=== PATIENT | male | born 1980 | race Caucasian/White ===

== ENCOUNTER 2018-01-04 23:34 | Observation (INO) | payer BC ==
[2018-01-05 00:33] LABS: Absolute Lymphocytes (CBC) 1.6 K/uL (0.7-4.9); Absolute Monocytes 1.1 K/uL (0.1-1.3); Absolute Neutrophil 8.2 K/uL (1.8-8.0); Basophils % 0.3 % (0-1.3); Eosinophils % 0.5 % (0-4.4); Hematocrit 48.1 % (39.6-49.0); Lymphocytes % 14.4 % (15.3-44.8); MCH 30.9 pg (27.0-35.0); MCV 88.8 fL (80-100); MPV 9.7 fL (7.6-11.3); Monocytes % 10.1 % (3.3-12.3); RBC Red Blood Cell Count 5.42 M/uL (4.33-5.43)
[2018-01-05 00:39] LABS: Protime INR 1.11
[2018-01-05 00:57] LABS: ALT/SGPT 43 U/L (12-78); AST/SGOT 33 U/L (15-37); Alkaline Phosphatase 81 U/L (45-117); BUN Blood Urea Nitrogen 9 mg/dL (7-18); Bicarbonate 28 mmol/L (21-32); Bilirubin Direct 0.1 mg/dL (0-0.2); Bilirubin Total 0.7 mg/dL (0.2-1.0); Glucose Level 109 mg/dL (74-106); Magnesium 2.5 mg/dL (1.8-2.4); NT PRO-BNP 808 pg/mL (<125); Potassium 3.9 mmol/L (3.5-5.1); Protein, Total 7.7 g/dL (6.4-8.2); Sodium Level 135 mmol/L (136-145); Troponin (Emerg Dept Use Only) < 0.02 ng/mL (0.0-0.045)
[2018-01-05 01:45] LABS: Urine Blood NEGATIVE (NEG); Urine Glucose NEGATIVE (NEG); Urine Protein NEGATIVE (NEG); Urine Specific Gravity <1.005 (1.005-1.030)
--- NOTE | 2018-01-05 01:48 | ER ---
Nurse's Notes [facility] Name: Akin Dash Age: 37 yrs Sex: Male : 1980 Arrival Date: 01/04/2018 Time: 23:38 Bed 14 Private MD: Diagnosis: Chest pain, unspecified;Cocaine abuse Presentation: 01/04 23:40 Presenting complaint: Patient states: that he is having chest pain that radiates to his back along with shortness of breath and nausea. States that this pain started after ingestion of cocaine. Transition of care: patient was not received from another setting of care. Onset of symptoms was January 04, 2018 at 01:00. Risk Assessment: Do you want to hurt yourself or someone else? Patient reports no desire to harm self or others. Initial Sepsis Screen: Does the patient meet any 2 criteria? No. Patient's initial sepsis screen is negative. Does the patient have a suspected source of infection? No. Patient's initial sepsis screen is negative. Care prior to arrival: None. 23:40 Method Of Arrival: Ambulatory fc 23:40 Acuity: BÁRBARA 3 Triage Assessment: 23:40 General: Appears comfortable, Behavior is calm, cooperative, appropriate for age. Pain: fc Complains of pain in chest Pain radiates to back Pain currently is 5 out of 10 on a pain scale. Quality of pain is described as dull, radiating, sharp, Pain began 1 day ago. Is continuous. EENT: No deficits noted. Neuro: Level of Consciousness is awake, alert, obeys commands, Oriented to person, place, time, situation. Cardiovascular: Reports chest pain, nausea, Heart tones S1 S2 Capillary refill < 3 seconds Pulses are all present. Rhythm is regular Chest pain is described as vague, quality is sharp, is located in chest wall radiates back began at 0100 episodes are continuous. Respiratory: Reports shortness of breath pain with respiration Airway is patent Trachea midline Respiratory effort is even, unlabored, Respiratory pattern is regular, symmetrical, Breath sounds are clear bilaterally. Onset: The symptoms/episode began/occurred suddenly, the patient has mild shortness of breath. GI: Abdomen is non-distended, Bowel sounds present X 4 quads. Reports nausea. : No deficits noted. Derm: Skin is pink, warm \T\ dry. Musculoskeletal: Circulation, motion, and sensation intact. Capillary refill < 3 seconds, Range of motion: intact in all extremities. Historical: - Allergies: 01/05 03:15 No Known Allergies; fc - Home Meds: 03:15 None [Active]; fc - PMHx: 03:15 None; fc - PSHx: 03:15 Appendectomy; Tonsillectomy; Knee surgery; fc - Immunization history:: Last tetanus immunization: unknown. - Social history:: Smoking status: Patient uses tobacco products, smokes one pack cigarettes per day. Patient uses alcohol, occasionally. street drugs, cocaine. - Ebola Screening: : Patient negative for fever greater than or equal to 101.5 degrees Fahrenheit, and additional compatible Ebola Virus Disease symptoms Patient denies exposure to infectious person Patient denies travel to an Ebola-affected area in the 21 days before illness onset. - Family history:: not pertinent. Screenin/27 23:40 Abuse screen: Denies threats or abuse. Nutritional screening: No deficits noted. fc Tuberculosis screening: No symptoms or risk factors identified. Fall Risk None identified. Assessment: 23:45 General: Appears in no apparent distress. uncomfortable, Behavior is calm, cooperative, kr2 appropriate for age. Pain: Complains of pain in left breast Pain does not radiate. Pain currently is 5 out of 10 on a pain scale. Quality of pain is described as sharp, Pain began 1 day ago. Is continuous, Alleviated by nothing. Neuro: Level of Consciousness is awake, alert, obeys commands, Oriented to person, place, time, situation. Cardiovascular: Capillary refill < 3 seconds in bilateral fingers Patient's skin is warm and dry. Rhythm is regular. Respiratory: Airway is patent Respiratory effort is even, unlabored, Respiratory pattern is regular, symmetrical. GI: Abdomen is flat, non-distended, Reports nausea, Patient currently denies vomiting. EENT: Oral mucosa is moist. Derm: Skin is intact, is healthy with good turgor, Skin is pink, warm \T\ dry. Musculoskeletal: Circulation, motion, and sensation intact. 01/05 01:01 Reassessment: Patient appears in no apparent distress at this time. Patient and/or kr2 family updated on plan of care and expected duration. Pain level reassessed. Patient is alert, oriented x 3, equal unlabored respirations, skin warm/dry/pink. 07:15 Reassessment: Pt resting in bed with eyes closed, easy to awaken to verbal stimuli. aa5 Respirations even and unlabored, skin is pink/warm/dry. 0/10 pain at this time, reports pain is intermittent. Pt notified of wait time to be transported to Room 213, pt verbalized understanding. . 07:35 Reassessment: Patient is alert, oriented x 3, equal unlabored respirations, skin aa5 warm/dry/pink. Vital Signs: 01/04 23:40 BP 117 / 74; Pulse 86; Resp 18; Temp 98.6(O); Pulse Ox 96% on R/A; Weight 86.18 kg (R); fc Height 5 ft. 7 in. (170.18 cm) (R); Pain 5/10; 01/05 01:22 BP 113 / 75; Pulse 75; Resp 19; Pulse Ox 97% on R/A; kr2 07:15 BP 113 / 74; Pulse 77; Resp 14 S; Temp 98.8(TE); Pulse Ox 97% on R/A; Pain 0/10; aa5 01/04 23:40 Body Mass Index 29.76 (86.18 kg, 170.18 cm) fc ED Course: 01/04 23:38 Patient arrived in ED. es 23:40 Arm band placed on Patient placed in an exam room, on a stretcher. fc 23:40 Patient has correct armband on for positive identification. Placed in gown. Bed in low fc position. Call light in reach. bus monitor on. Pulse ox on. NIBP on. 23:40 Patient maintains SpO2 saturation greater than 95% on room air. fc 23:56 EKG done, by ED staff, reviewed by Gordon Mike MD. 01/05 00:03 Initial lab(s) drawn, by oh, sent to lab. Inserted saline lock: 20 gauge in right fc antecubital area, using aseptic technique. Blood collected. 00:17 Triage completed. fc 00:25 Gordon Mike MD is Attending Physician. kvng 00:31 Monica Hanson RN is Primary Nurse. kr2 00:51 X-ray completed. Portable x-ray completed in exam room. Patient tolerated procedure kw well. 00:53 XRAY Chest (1 view) In Process Unspecified. EDMS 01:47 Maisha Arzate MD is Hospitalizing Provider. kvng 03:[address] via wheelchair. 03:24 CT completed. Patient tolerated procedure well. Patient moved back from CT. 07:00 Report received from ARA Pereyra. [facility] 07:36 Primary Nurse role handed off by Monica Hanson, ARA 07:36 No provider procedures requiring assistance completed. Patient admitted, IV remains in aa5 place. Administered Medications: 02:44 Drug: Lovenox 1 mg/kg Route: Sub-Q; Site: right lower abdomen; tl2 07:15 Follow up: Response: No adverse reaction aa 02:45 Drug: Aspirin Chewable Tablet 324 mg Route: PO; tl2 07:15 Follow up: Response: No adverse reaction [facility] Outcome: 01:48 Decision to Hospitalize by Provider. [facility] 07:35 Admitted to Tele accompanied by tech, via wheelchair, with chart, Report called to aa5 ARA Roberts 07:35 Condition: stable 07:35 Instructed on the need for admit, Demonstrated understanding of instructions. 07:40 Patient left the ED. [facility] Signatures: Dispatcher [employer] EDDafne Jung, RN RN aj1 Gordon Mike MD MD cha Salyer, Joselito Hood Paola Winston, RN RN Mary Lopez RN RN aa5 Tana Leonardo Taylor RN RN tl2 Monica Hanson, RN RN 2 Sandhya Weldon Corrections: (The following items were deleted from the chart) 01:21 01:21 BP 113 / 75; Pulse 74bpm; Resp 19bpm; Pulse Ox 97% RA; aj1 aj1
--- NOTE | 2018-01-05 01:48 | EDPHYS ---
Physician Documentation [facility] Name: Akin Dash Age: 37 yrs Sex: Male : 1980 Arrival Date: 01/04/2018 Time: 23:38 Bed 14 Private MD: ED Physician Gordon Mike HPI: 01/05 01:45 This 37 yrs old Male presents to ER via Ambulatory with complaints of Chest kvng Pain, Back Pain. 01:45 The patient or guardian reports chest pain that is located primarily in the anterior kvng chest wall, left. The pain radiates to Associated signs and symptoms: The patient has no apparent associated signs or symptoms. The chest pain is described as a heaviness. Modifying factors: The symptoms are alleviated by nothing. the symptoms are aggravated by nothing. Severity of pain: At its worst the pain was mild in the emergency department the pain is unchanged. The patient has not experienced similar symptoms in the past. Historical: - Allergies: 03:15 No Known Allergies; fc - Home Meds: 03:15 None [Active]; fc - PMHx: 03:15 None; fc - PSHx: 03:15 Appendectomy; Tonsillectomy; Knee surgery; fc - Immunization history:: Last tetanus immunization: unknown. - Social history:: Smoking status: Patient uses tobacco products, smokes one pack cigarettes per day. Patient uses alcohol, occasionally. street drugs, cocaine. - Ebola Screening: : Patient negative for fever greater than or equal to 101.5 degrees Fahrenheit, and additional compatible Ebola Virus Disease symptoms Patient denies exposure to infectious person Patient denies travel to an Ebola-affected area in the 21 days before illness onset. - Family history:: not pertinent. ROS: 01:45 Constitutional: Negative for fever, chills, and weight loss, Eyes: Negative for injury, kvng pain, redness, and discharge, ENT: Negative for injury, pain, and discharge, Neck: Negative for injury, pain, and swelling, Respiratory: Negative for shortness of breath, cough, wheezing, and pleuritic chest pain, Abdomen/GI: Negative for abdominal pain, nausea, vomiting, diarrhea, and constipation, Back: Negative for injury and pain, : Negative for injury, bleeding, discharge, and swelling, MS/Extremity: Negative for injury and deformity, Skin: Negative for injury, rash, and discoloration, Neuro: Negative for headache, weakness, numbness, tingling, and seizure, Psych: Negative for depression, anxiety, suicide ideation, homicidal ideation, and hallucinations, Allergy/Immunology: Negative for hives, rash, and allergies, Endocrine: Negative for neck swelling, polydipsia, polyuria, polyphagia, and marked weight changes, Hematologic/Lymphatic: Negative for swollen nodes, abnormal bleeding, and unusual bruising. 01:45 Cardiovascular: Positive for chest pain. Exam: 01:45 Constitutional: This is a well developed, well nourished patient who is awake, alert, kvng and in no acute distress. Head/Face: Normocephalic, atraumatic. Eyes: Pupils equal round and reactive to light, extra-ocular motions intact. Lids and lashes normal. Conjunctiva and sclera are non-icteric and not injected. Cornea within normal limits. Periorbital areas with no swelling, redness, or edema. ENT: Nares patent. No nasal discharge, no septal abnormalities noted. Tympanic membranes are normal and external auditory canals are clear. Oropharynx with no redness, swelling, or masses, exudates, or evidence of obstruction, uvula midline. Mucous membranes moist. Neck: Trachea midline, no thyromegaly or masses palpated, and no cervical lymphadenopathy. Supple, full range of motion without nuchal rigidity, or vertebral point tenderness. No Meningismus. Chest/axilla: Normal chest wall appearance and motion. Nontender with no deformity. No lesions are appreciated. Cardiovascular: Regular rate and rhythm with a normal S1 and S2. No gallops, murmurs, or rubs. Normal PMI, no JVD. No pulse deficits. Respiratory: Lungs have equal breath sounds bilaterally, clear to auscultation and percussion. No rales, rhonchi or wheezes noted. No increased work of breathing, no retractions or nasal flaring. Abdomen/GI: Soft, non-tender, with normal bowel sounds. No distension or tympany. No guarding or rebound. No evidence of tenderness throughout. Back: No spinal tenderness. No costovertebral tenderness. Full range of motion. Male : Normal genitalia with no discharge or lesions. Skin: Warm, dry with normal turgor. Normal color with no rashes, no lesions, and no evidence of cellulitis. MS/ Extremity: Pulses equal, no cyanosis. Neurovascular intact. Full, normal range of motion. Neuro: Awake and alert, GCS 15, oriented to person, place, time, and situation. Cranial nerves II-XII grossly intact. Motor strength 5/5 in all extremities. Sensory grossly intact. Cerebellar exam normal. Normal gait. Psych: Awake, alert, with orientation to person, place and time. Behavior, mood, and affect are within normal limits. Vital Signs: 01/04 23:40 BP 117 / 74; Pulse 86; Resp 18; Temp 98.6(O); Pulse Ox 96% on R/A; Weight 86.18 kg (R); fc Height 5 ft. 7 in. (170.18 cm) (R); Pain 5/10; 01/05 01:22 BP 113 / 75; Pulse 75; Resp 19; Pulse Ox 97% on R/A; kr2 07:15 BP 113 / 74; Pulse 77; Resp 14 S; Temp 98.8(TE); Pulse Ox 97% on R/A; Pain 0/10; aa5 01/04 23:40 Body Mass Index 29.76 (86.18 kg, 170.18 cm) MDM: 00:25 Patient medically screened. [facility] 01:47 Data reviewed: vital signs, nurses notes, lab test result(s), EKG, radiologic studies, kvng plain films. 01/05 00:14 Order name: Basic Metabolic Panel; Complete Time: [facility] 01/05 00:14 Order name: CBC with Diff; Complete Time: [facility] 01/05 00:14 Order name: LFT's; Complete Time: [facility] 01/05 00:14 Order name: Magnesium; Complete Time: [facility] 01/05 00:14 Order name: NT PRO-BNP; Complete Time: [facility] 01/05 00:14 Order name: PT-INR; Complete Time: [facility] 01/05 00:14 Order name: Troponin (emerg Dept Use Only); Complete Time: :44 [facility] 01/05 00:14 Order name: XRAY Chest (1 view) [facility] 01/05 01:24 Order name: Urine Dipstick--Ancillary (enter results); Complete Time: 03:43 [facility] 01/05 01:45 Order name: D-Dimer [facility] 01/05 06:47 Order name: Troponin I [facility] 01/05 06:47 Order name: Lipid Profile [facility] 01/05 00:14 Order name: EKG; Complete Time: 00:15 [facility] 01/05 00:14 Order name: Cardiac monitoring; Complete Time: 00:22 [facility] 01/05 00:14 Order name: EKG - Nurse/Tech; Complete Time: 00:30 [facility] 01/05 00:14 Order name: IV Saline Lock; Complete Time: 00: [facility] 01/05 00:14 Order name: Labs collected and sent; Complete Time: 00: [facility] 01/05 00:14 Order name: O2 Per Protocol; Complete Time: 00: [facility] 01/05 00:14 Order name: O2 Sat Monitoring; Complete Time: 00: [facility] 01/05 01:51 Order name: CONS Physician Consult EDLA Administered Medications: 02:44 Drug: Lovenox 1 mg/kg Route: Sub-Q; Site: right lower abdomen; tl2 07:15 Follow up: Response: No adverse reaction aa5 02:45 Drug: Aspirin Chewable Tablet 324 mg Route: PO; tl2 07:15 Follow up: Response: No adverse reaction aa5 Disposition: 01/05/18 01:48 Hospitalization ordered by Maisha Arzate for Observation. Preliminary diagnosis are Chest pain, unspecified, Cocaine abuse. - Bed requested for Telemetry/MedSurg (observation). - Status is Observation. aa5 - Condition is Stable. - Problem is new. - Symptoms have improved. UTI on Admission? No Signatures: Dispatcher [employer] [facility] Yani León RN RN Gordon Mike MD MD cha Chretien, Felicia RN RN Mary Lopez RN RN aa5 Meagan Rowe RN RN 2 Nikolai Russell 2 Corrections: (The following items were deleted from the chart) 01:50 01:48 Hospitalization Ordered by Maisha Arzate MD for Observation. Preliminary diagnosis is Chest pain, unspecified; Cocaine abuse. Bed requested for Telemetry/MedSurg (observation). Status is Observation. Condition is Stable. Problem is new. Symptoms have improved. UTI on Admission? No. kvng 05:03 01:50 01/05/2018 01:48 Hospitalization Ordered by Maisha Arzate MD for Observation. mw Preliminary diagnosis is Chest pain, unspecified; Cocaine abuse. Bed requested for [facility] ER HOLD. Status is Observation. Condition is Stable. Problem is new. Symptoms have improved. UTI on Admission? No. fc 07:40 05:03 01/05/2018 01:48 Hospitalization Ordered by Maisha Arzate MD for Observation. aa5 Preliminary diagnosis is Chest pain, unspecified; Cocaine abuse. Bed requested for Telemetry/MedSurg (observation). Status is Observation. Condition is Stable. Problem is new. Symptoms have improved. UTI on Admission? No. mw
[2018-01-05] MEDS ORDERED: ENOXAPARIN 80 MG/0.8 ML SQ ONE (02:37)
[2018-01-05] MEDS ORDERED: ASPIRIN 81 MG CHEWABLE TABLET ONE (02:37)
[2018-01-05] MEDS ORDERED: ACETAMINOPHEN 500 MG TAB PO PRN (03:02)
[2018-01-05] MEDS ORDERED: MORPHINE 4 MG/ML SYR IV PRN (03:02)
[2018-01-05] MEDS ORDERED: ALPRAZOLAM 0.25 MG TABLET PO PRN (03:02)
[2018-01-05] MEDS ORDERED: GUAIFENESIN/CODEINE 5ML UCUP PO PRN (03:06)
[2018-01-05] MEDS ORDERED: METHYLPREDNISOLONE 125 MG INJ IV ONE (03:06)
[2018-01-05] MEDS ORDERED: Levofloxacin500mg IV 500 MG/100 ML BAG IV SCH (04:00)
--- NOTE | 2018-01-05 05:30 | P.HP ---
Certification for Inpatient Patient admitted to: Observation With expected LOS: <2 Midnights Patient will require the following post-hospital care: None Practitioner: I am a practitioner with admitting privileges, knowledge of patient current condition, hospital course, and medical plan of care. Services: Services provided to patient in accordance with Admission requirements found in Title 42 Section 412.3 of the Code of Federal Regulations Patient History Date of Service: 01/05/18 Reason for admission: Chest pain rule out acute coronary syndrome History of Present Illness: Patient is a 37-year-old gentleman who presents to the emergency room with complaints of chest discomfort. Patient states that the chest pain is mainly on the anterior of his chest wall. He has some radiation down the left side of his arm. He describes it as a heaviness. The pain worsens when he takes a deep breath. He has also has some diaphoresis and shortness of breath. Patient had an episode of nausea and vomiting. He will be admitted to the hospital to be ruled out for acute coronary syndrome. Patient does state that he has had pneumonia in the past. He has had 2 different episodes of pneumonia. He does have pleuritic chest pain 1 did pneumonia has been present. He has been smoking more so the last few weeks as well. Will go ahead and evaluate for possible pneumonic process as well. Patient is been having a coughing congestion but denies having fever, shakes, or chills. There is also the question of a history of cocaine abuse. Will go ahead and do a urine drug screen to further evaluate this. Allergies No Known Drug Allergies Allergy (Unverified 01/05/18 03:16) Unknown No Known Allergies Allergy (Uncoded 01/05/18 03:16) Unknown Home Medications: NK [No Home Meds] 01/05/18 - Past Medical/Surgical History -: Pneumonia Past Surgical History: Patient denies surgical history - Family History Father Family History: Reviewed- Non-Contributory - Social History Smoking Status: Current every day smoker (Half a pack a day) Alcohol use: No CD- Drugs: No Review of Systems 10-point ROS is otherwise unremarkable Physical Examination - Vital Signs Temperature: 98 F Blood Pressure: 140/70 Pulse: 88 Respirations: 18 Pulse Ox (%): 95 - Physical Exam General: Alert, In no apparent distress, Oriented x3 HEENT: Atraumatic, PERRLA, Mucous membr. moist/pink, EOMI, Sclerae nonicteric Neck: Supple, 2+ carotid pulse no bruit, No LAD, Without JVD or thyroid abnormality Respiratory: Clear to auscultation bilaterally, Normal air movement Cardiovascular: Regular rate/rhythm, Normal S1 S2, No murmurs Gastrointestinal: Normal bowel sounds, Soft and benign, Non-distended, No tenderness Musculoskeletal: No clubbing, No swelling, No tenderness Integumentary: No rashes, Tenderness/swelling Neurological: Normal gait, Normal speech, Normal strength at 5/5 x4 extr, Normal tone, Sensation intact, Cranial nerves 3-12 intact, Normal affect Lymphatics: No axilla or inguinal lymphadenopathy - Studies Laboratory Data (last 24 hrs) 01/05/18 00:03: PT 13.1 H, INR 1.11 01/05/18 00:03: WBC 11.0 H, Hgb 16.7, Hct 48.1, Plt Count 137 L 01/05/18 00:03: Sodium 135 L, Potassium 3.9, BUN 9, Creatinine 1.40 H, Glucose 109 H, Magnesium 2.5 H, Total Bilirubin 0.7, AST 33, ALT 43, Alkaline Phosphatase 81 Assessment & Plan - Problems (Diagnosis) (1) Chest pain, rule out acute myocardial infarction Current Visit: Yes Status: Acute (2) Leukocytosis Current Visit: Yes Status: Acute (3) Thrombocytopenia Current Visit: Yes Status: Acute - Plan Plan: 1. Serial troponins and EKG 2. Cardiology consultation 3. Echocardiogram and stress test in am 4. Anti-platelet therapy, anti coagulation, beta-jayce, statin, and O2 as needed 5. IV morphine for pain 6. Check urine drug screen as well 7. GI and DVT prophylaxis Discharge Plan: Home Plan to discharge in: 24 Hours - Advance Directives Does patient have a Living Will: No Does patient have a Durable POA for Healthcare: No - Code Status/Comfort Care Code Status Assessed: Yes Code Status: Full Code Critical Care: No Time Spent Managing PTS Care (In Minutes): 50
[2018-01-05 06:47] LABS: HDL Cholesterol 33 mg/dL (40-60); LDL Cholesterol, Calculated 106 (<130); Troponin I < 0.02 ng/mL (0.0-0.045)
[2018-01-05] MEDS ORDERED: REGADENOSON 0.4 MG/5 ML SYR IV ONE (08:07)
[2018-01-05] MEDS ORDERED: METOPROLOL TAR 50 MG TAB PO SCH (09:00)
[2018-01-05] MEDS ORDERED: ASPIRIN EC 81 MG TAB PO SCH (09:00)
[2018-01-05] MEDS ORDERED: ENOXAPARIN 40 MG/0.4 ML SQ SCH (09:00)
--- NOTE | 2018-01-05 09:05 | EKG ---
Test Date: 2018-01-04 Test Time: 23:56:31 [employer] T[employer]: ARLIN MEASUREMENT RESULTS: Intervals: Rate: 86 TX: 148 QRSD: 90 QT: 366 QTc: 437 Hewitt: P: 45 TX: 148 QRS: 71 T: 41 INTERPRETIVE STATEMENTS: Normal sinus rhythm Normal ECG No previous ECG available for comparison Electronically Signed On 01-05-18 09:05:19 CDT by Kristian Louise
--- NOTE | 2018-01-05 09:28 | RAD REPORT ---
EXAM DESCRIPTION: RAD - Chest Single View - 01/05/2018 12:53 am CLINICAL HISTORY: Chest pain COMPARISON: None. TECHNIQUE: AP portable chest image was obtained 0033 hours . FINDINGS: Lungs are clear. Heart and vasculature are normal. No measurable pleural effusion and no p neumothorax. No gross bony abnormality seen. No acute aortic findings suspected. IMPRESSION: No acute cardiopulmonary process.
--- NOTE | 2018-01-05 09:36 | TREADPHA ---
DX: CHEST PAIN Date of Study: 01/05/2018 Ht: 5 7 Wt: 190 lb 0 oz Consulting Physician: LINDSEY MEDICATIONS: NO HOME MEDICATIONS. HISTORY: 37 YEAR OLD MALE WITH COMPLAINTS OF CHEST PAIN. MEDICAL HISTORY: NONE. PT IS A SMOKER, 1 PACK PER DAY. PHYSICIAL EXAMINATION: RESTING B.P.: 99/64 RESTING H.R.: 73 RESTING EKG: NORMAL. PROTOCOL: LEXISCAN EXERCISE TIME: 3:30 B.P. AT PEAK STRESS: 102/59 IMPRESSION: LEXISCAN INJECTED. CARDIOLITE INJECTED PER PROTOCOL. SEE NUCLEAR MEDICINE REPORT. NO SUPRAVENTRICULAR TACHYCARDIA. NO VENTRICULAR TACHYCARDIA. NO PREMATURE VENTRICULAR COMPLEXES. DENIED CHEST PAIN. NONDIAGNOSTIC EXERCISE LEXISCAN STRESS TEST.
--- NOTE | 2018-01-05 09:40 | RAD REPORT ---
EXAM DESCRIPTION: CT - Thorax Wo Con - 01/05/2018 3:30 am CLINICAL HISTORY: Back pain, chest pain. A preliminary report was provided at the time of the study but was not available at time of final re port. COMPARISON: None. TECHNIQUE: Axial 5 mm thick images of the chest were obtained without IV contrast. All CT scans are performed using dose optimization technique as appropriate and may include automated exposure control or mA/KV adjustment according to patient size. FINDINGS: No mass or infiltrate in the lung parenchyma. No pleural thickening or pleural effusion. N o pneumothorax. No abnormal mediastinal or hilar masses or lymphadenopathy seen. No gross aortic or pulmonary artery finding suspected. Assessment is limited in the absence of IV contrast. No chest wall mass or abnormal axillary lymphadenopathy. IMPRESSION: Negative non-contrast CT chest examination.
--- NOTE | 2018-01-05 10:40 | RAD REPORT ---
EXAM DESCRIPTION: NM - Rest Stress Cardiac Imaging - 01/05/2018 10:27 am CLINICAL HISTORY: Chest pain COMPARISON: None. TECHNIQUE: The patient was administered 10.4 mCi of Tc 99m Sestamibi prior to resting SPECT imaging of the heart. The patient was then administered 31.1 mCi of Tc 99m Sestamibi following exercise or ph armacologic stress. Multiplanar SPECT images were reviewed. FINDINGS: The end diastolic volume is 95 ml, the end systolic volume is 39 ml, and the ejection frac tion is 60 %. Small focal areas of decreased activity are seen in the anterior wall mid in apex portion and the inf erior wall near the apex. These are not clearly different between rest and stress imaging. Stress-ind uced ischemic changes are not confirmed. IMPRESSION: No stress-induced ischemia. Small focal areas of scarring or possibly attenuation artifacts in the anterior and inferior wall. Ventricular volumes and ejection fraction are normal range.
[2018-01-05] MEDS ORDERED: INFLUENZA VACCINE (for 3y+) 0.5 ML DOSE IMVAC ONE (12:00)
--- NOTE | 2018-01-05 14:13 | CON ---
Identification: A 37-year-old man. History Of Present Illness: Mr. Dash came to the hospital with chest pain. He had been having fiorella st pain for 2 days already before he got here and it was already starting to resolve on its own. The pain is in left side of his chest. It gets a lot worse with a deep breath and this morning it is mu ch better than it was, especially Monday. Since he has been in the hospital, NM was ruled out. T he patient has no history of myocardial infarction, stroke, hypertension, dyslipidemia. No vascular disease. He is a regular tobacco user, but plans to quit. His EKG is normal and troponins are erika l. NT proBNP is slightly elevated at 808. Physical Examination: General: He is 5 feet 7, 190 pounds. He is muscular. Does not have centripetal obesity HEENT: Nor mal. Lungs: Clear. Cardiac: Normal. No clear friction rub. Vital Signs: His blood pressure is 113/74, pulse 77. Laboratory Data: Platelet count is slightly low at 137. We suspect that is from excessive alcohol a buse, which seems to be a part of his life. Medications: He uses no home medications. A stress test will be done soon. If that is normal, I think he could be discharged. I suspect the m ethylprednisolone is what helped him feel better. He received 1 dose. He could probably take nonste roidal anti-inflammatory drugs until his symptoms resolve. An echocardiogram will be done at some po int later today. Thank you very much for your kind referral of Mr. Dash. I will follow him with you. GIAN Voice ID: [id number] Report ID: [id number]
--- NOTE | 2018-01-05 15:08 | ECHO ---
HEIGHT: 5 ft 7 in WEIGHT: 187 lb 4 oz DATE OF STUDY: 01/05/[address]: 2-DIMENSIONAL: YES M.MODE: YES DOPPLER: YES COLOR FLOW: YES TDS: NO PORTABLE: NO DEFINITY: NO BUBBLE STUDY: NO DIAGNOSIS: CHEST PAIN. RULE OUT ACUTE CORONARY SYNDROME CARDIAC HISTORY: CATHERIZATION: NO SURGERY: NO PROSTHETIC VALVE: NO PACEMAKER: NO MEASUREMENTS (cm) DIASTOLIC (NORMALS) SYSTOLIC (NORMALS) IVSd 1.0 (0.6-1.2) LA Diam 3.4 (1.9-4.0) LVEF 72% LVIDd 3.4 (3.5-5.7) LVIDs 2.0 (2.0-3.5) %FS 40% LVPWd 0.9 (0.6-1.2) Ao Diam 2.6 (2.0-3.7) 2 DIMENSIONAL ASSESSMENT: RIGHT ATRIUM: NORMAL LEFT ATRIUM: NORMAL RIGHT VENTRICLE: NORMAL LEFT VENTRICLE: NORMAL TRICUSPID VALVE: NORMAL MITRAL VALVE: NORMAL PULMONIC VALVE: NORMAL AORTIC VALVE: NORMAL PERICARDIAL EFFUSION: NONE AORTIC ROOT: NORMAL LEFT VENTRICULAR WALL MOTION: NORMAL. DOPPLER/COLOR FLOW: NORMAL. COMMENTS: NORMAL 2D ECHOCARDIOGRAM WITH DOPPLER. TECHNOLOGIST: OMAYRA NOLASCO RDCS
[2018-01-05 15:50] LABS: Barbiturates NEGATIVE (NEGATIVE); Benzodiazepines NEGATIVE (NEGATIVE); METHAMPHETAM NEGATIVE (NEGATIVE); Methadone NEGATIVE (NEGATIVE); Opiates POSITIVE (NEGATIVE); Phencyclidine NEGATIVE (NEGATIVE); THC Cannibis NEGATIVE (NEGATIVE)
[2018-01-05 15:51] LABS: Cocaine POSITIVE (NEGATIVE)
--- NOTE | 2018-01-06 07:16 | DS ---
Date of Discharge: 01/05/2018 Consultants: Dr. Louise with Cardiology. Procedures: Nuclear medicine stress test shows no stress-induced ischemia, done on 01/05/2018. EF 6 0%. Admitting Diagnoses: 1.Chest pain, rule out acute coronary syndrome. 2.Leukocytosis. 3.Thrombocytopenia. Discharge Diagnoses: 1.Chest pain. Acute coronary syndrome ruled out. 2.Cocaine abuse. 3.Thrombocytopenia. 4.Acute kidney injury. 5.Hypertriglyceridemia. 6.Nicotine dependance. Hospital Course: The patient is a 37-year-old male who comes in with chest pain, mainly the anterior chest wall. The patient does admit to using cocaine prior to his episode. Denies any history of he art disease. No family history of heart disease. The patient is a smoker. Patient's workup reveale d negative cardiac enzymes. His triglyceride level was elevated at 226, HDL was low at 33. He was c ounseled regarding diet and exercise modification prior to initiating statin therapy. The patient wa s also counseled regarding smoking and extensively counseled against use of cocaine. The patient voi kiana understanding. He states he was not sure what he was thinking when he took the illicit drug. Dc s UDS was also obtained. The patient did have some mildly elevated creatinine at 1.4, which is likel y from an acute dehydration and prerenal azotemia. He was seen by Dr. Louise with Cardiology. Nucle ar medicine stress test was done which did not show any stress-induced ischemia. His echocardiogram showed normal ejection fraction. The patient's symptoms had resolved. He was then cleared for disch arge and was sent home in a stable condition. Activity: As tolerated. Medications: As per medication reconciliation list. Followup: Follow up with primary care physician in 2-3 days. Follow up with [employer], Dr. Chad callaway, as needed. Return to ER for worsening condition. Diet: Heart healthy, low-cholesterol diet. Complete abstinence from cocaine. Smoking cessation cou nseling done. Physical Examination: General: Awake, alert, oriented, no acute distress. CV: S1, S2. No murmurs. Respiratory: Moving air well bilaterally. Abdomen: Abdomen is soft, nontender, nondistended. Positive bowel sounds. Extremities: No clubbing, cyanosis, edema. Neurologic: Nonfocal. SA/MODL Voice ID: [id number] Report ID: [id number]
== END 2018-01-05 16:15 | disposition home or self-care (01) ==
LOC: ER 23:34 → ERHOLD 01-05 01:49 → 2ND 01-05 05:50
PROVIDERS: ADMIT Hospitalist; ATTEND Hospitalist
DX: R07.9 Chest pain, unspecified (principal); F14.10 Cocaine abuse, uncomplicated; D69.6 Thrombocytopenia, unspecified; N17.9 Acute kidney failure, unspecified; E78.1 Pure hyperglyceridemia; F17.210 Nicotine dependence, cigarettes, uncomplicated
CPT/HCPCS: 36415; 71045; 71250; 78452; 80048; 80061; 80076; 80307; 81003; 83735; 83880; 84484; 85025; 85379; 85610; 93005; 93017; 93306; 96372; 99285; A9500; G0378; J1650; J2785; J2930

== ENCOUNTER 2018-10-23 12:46 | Emergency (ER) | payer BC, SELFPAY ==
[2018-10-23 14:31] LABS: Hematocrit 52.1 % (39.6-49.0)
[2018-10-23 14:32] LABS: Absolute Lymphocytes (CBC) 3.6 K/uL (0.7-4.9); Basophils % 0.7 % (0-1.3); Eosinophils % 1.4 % (0-4.4); Lymphocytes % 33.7 % (15.3-44.8); MPV 9.2 fL (7.6-11.3)
[2018-10-23] MEDS ORDERED: KETOROLAC 30 MG/ML INJ ONE (14:36)
[2018-10-23] MEDS ORDERED: MEPERIDINE HCL 25 MG/0.5 ML ONE (14:36)
[2018-10-23] MEDS ORDERED: ONDANSETRON 4 MG/2 ML VIAL ONE (14:37)
[2018-10-23 14:53] LABS: Potassium 3.7 mmol/L (3.5-5.1)
--- NOTE | 2018-10-23 15:36 | ER ---
Nurse's Notes [facility] Name: Akin Dash Age: 37 yrs Sex: Male : 1980 Arrival Date: 10/23/2018 Time: 12:50 Bed 9 Private MD: Diagnosis: Septic Bursitis Presentation: 10/23 13:05 Presenting complaint: Patient states: i have an inflamed bursa on my R elbow and now hj its swollen and hurting; pain is 10/10;. Transition of care: patient was not received from another setting of care. Onset of symptoms was October 23, 2018. Risk Assessment: Do you want to hurt yourself or someone else? Patient reports no desire to harm self or others. Initial Sepsis Screen: Does the patient meet any 2 criteria? No. Patient's initial sepsis screen is negative. Does the patient have a suspected source of infection? No. Patient's initial sepsis screen is negative. Care prior to arrival: None. 13:05 Method Of Arrival: Ambulatory 13:05 Acuity: BÁRBARA 3 hj Triage Assessment: 15:41 General: Behavior is. ca1 Historical: - Allergies: 13:07 No Known Drug Allergies; hj - PMHx: 13:07 None; hj - PSHx: 13:07 Appendectomy; Tonsillectomy; Knee surgery; hj - Immunization history:: Adult Immunizations not up to date. - Social history:: Smoking status: Patient uses tobacco products, smokes one pack cigarettes per day. - Ebola Screening: : Patient negative for fever greater than or equal to 101.5 degrees Fahrenheit, and additional compatible Ebola Virus Disease symptoms Patient denies exposure to infectious person Patient denies travel to an Ebola-affected area in the 21 days before illness onset No symptoms or risks identified at this time. Screenin:35 Abuse screen: Denies threats or abuse. Denies injuries from another. Nutritional ca1 screening: No deficits noted. Tuberculosis screening: No symptoms or risk factors identified. Fall Risk None identified. Assessment: 13:35 General: Appears in no apparent distress. uncomfortable. Pain: Complains of pain in ca1 right antecubital area and right elbow Pain currently is 8 out of 10 on a pain scale. Derm: Skin is intact, is healthy with good turgor, Skin is pink, warm \T\ dry. Musculoskeletal: Circulation, motion, and sensation intact. Capillary refill < 3 seconds, Range of motion: limited in right elbow. 13:35 Neuro: Level of Consciousness is awake, alert, obeys commands, Oriented to person, ca1 place, time, situation. Cardiovascular: Heart tones S1 S2 present Capillary refill < 3 seconds Patient's skin is warm and dry. Respiratory: Airway is patent Respiratory effort is even, unlabored, Respiratory pattern is regular, symmetrical, Breath sounds are clear bilaterally. GI: Abdomen is round non-distended, Bowel sounds present X 4 quads. Abd is soft and non tender X 4 quads. : No deficits noted. No signs and/or symptoms were reported regarding the genitourinary system. EENT: No deficits noted. No signs and/or symptoms were reported regarding the EENT system. 14:52 Reassessment: Patient appears in no apparent distress at this time. Patient and/or ca1 family updated on plan of care and expected duration. Pain level reassessed. Patient is alert, oriented x 3, equal unlabored respirations, skin warm/dry/pink. 15:39 Reassessment: Patient appears in no apparent distress at this time. Patient and/or ca1 family updated on plan of care and expected duration. Pain level reassessed. Patient is alert, oriented x 3, equal unlabored respirations, skin warm/dry/pink. Pt reported he was able to sleep after he pain meds administration. 16:00 Reassessment: Patient appears in no apparent distress at this time. Patient is alert, ca1 oriented x 3, equal unlabored respirations, skin warm/dry/pink. Pt stated he is not driving home and somebody will pick him up Patient states feeling better. Vital Signs: 13:07 BP 104 / 64; Pulse 92; Resp 18; Temp 98.1(TE); Pulse Ox 98% on R/A; Weight 85.73 kg; Height 5 ft. 7 in. (170.18 cm); Pain 10/10; 14:05 BP 125 / 69; Pulse 85; Resp 17 S; Temp 97.3(O); Pulse Ox 96% on R/A; ca1 15:40 BP 116 / 67; Pulse 91; Resp 17; Temp 97.5(O); Pulse Ox 97% on R/A; ca1 13:07 Body Mass Index 29.60 (85.73 kg, 170.18 cm) hj ED Course: 12:50 Patient arrived in ED. as 13:07 Triage completed. hj 13:07 Arm band placed on left wrist. hj 13:35 Patient has correct armband on for positive identification. Bed in low position. Call ca1 light in reach. Side rails up X 1. 13:35 Pulse ox on. NIBP on. ca1 13:38 Narinder Alcantar PA is PHCP. jr8 13:38 Gordon Mike MD is Attending Physician. jr8 13:48 Danette Escalante, ARA is Primary Nurse. ca1 14:17 No provider procedures requiring assistance completed. Inserted saline lock: 20 gauge ca1 in left antecubital area, using aseptic technique. Blood collected. 15:33 Marcio Chou MD is Referral Physician. jr8 16:09 IV discontinued, intact, bleeding controlled, No redness/swelling at site. Pressure ca1 dressing applied. Administered Medications: 14:46 Drug: TORadol - Ketorolac 15 mg Route: IVP; Site: left antecubital; hj 15:18 Follow up: Response: No adverse reaction hj 14:46 Drug: Demerol 25 mg Route: IVP; Site: left antecubital; hj 15:19 Follow up: Response: No adverse reaction; Pain is decreased hj 14:46 Drug: Zofran 4 mg Route: IVP; Site: left antecubital; hj 15:19 Follow up: Response: No adverse reaction hj Outcome: 15:35 Discharge ordered by . jr8 16:09 Discharged to home ambulatory. ca1 16:09 Condition: stable 16:09 Discharge instructions given to patient, Instructed on discharge instructions, follow up and referral plans. Demonstrated understanding of instructions, medications. 16:10 Patient left the ED. ca1 Signatures: Kiara York Josh, PA PA jr[address] RN RN Danette Escalante RN RN ca1 Corrections: (The following items were deleted from the chart) 13:09 13:05 Presenting complaint: Patient states: i have a bursa on my R elbow and now its hj swollen and hurting; pain is 10/10; hj 13:09 13:07 Pulse 92bpm; Resp 18bpm; Pulse Ox 98% RA; Temp 98.1F Temporal; 85.73 kg; Height 5 hj ft. 7 in.; BMI: 29.6; Pain 01/17; 14:16 13:05 Acuity: BÁRBARA 4 [facility] 15:40 13:35 Immunization history: Adult Immunizations up to date, ca1 ca1
--- NOTE | 2018-10-23 15:37 | EDPHYS ---
Physician Documentation [facility] Name: Akin Dash Age: 37 yrs Sex: Male : 1980 Arrival Date: 10/23/2018 Time: 12:50 Bed 9 Private MD: ED Physician Gordon Mike HPI: 10/23 14:06 This 37 yrs old Male presents to ER via Ambulatory with complaints of Elbow jr8 Pain. 14:06 The patient or guardian complains of decreased range of motion, pain, that is acute. jr8 The complaints affect the right elbow. Context: after mowing the lawn. Onset: The symptoms/episode began/occurred acutely, 2 day(s) ago, and became worse today. Modifying factors: The symptoms are alleviated by nothing. the symptoms are aggravated by movement, straightening arm. Associated signs and symptoms: Pertinent negatives: fever. Severity of symptoms: At their worst the symptoms were severe, in the emergency department the symptoms are unchanged, a " 10" out of "10". The patient has experienced a previous episode, previous bursitis. The patient has been recently seen by a physician: [facility] earlier today, with similar presenting complaints, and apparently given a diagnosis of olecranon bursitis, X-rays were performed, was given a prescription for pain medications, was given a prescription for antibiotics, and was referred to a specialist, pt did not get Rx filled, but the patient's symptoms have persisted. Historical: - Allergies: 13:07 No Known Drug Allergies; hj - PMHx: 13:07 None; hj - PSHx: 13:07 Appendectomy; Tonsillectomy; Knee surgery; hj - Immunization history:: Adult Immunizations not up to date. - Social history:: Smoking status: Patient uses tobacco products, smokes one pack cigarettes per day. - Ebola Screening: : Patient negative for fever greater than or equal to 101.5 degrees Fahrenheit, and additional compatible Ebola Virus Disease symptoms Patient denies exposure to infectious person Patient denies travel to an Ebola-affected area in the 21 days before illness onset No symptoms or risks identified at this time. ROS: 14:06 Constitutional: Negative for fever, chills, and weight loss, Eyes: Negative for injury, jr8 pain, redness, and discharge, ENT: Negative for injury, pain, and discharge, Neck: Negative for injury, pain, and swelling, Cardiovascular: Negative for chest pain, palpitations, and edema, Respiratory: Negative for shortness of breath, cough, wheezing, and pleuritic chest pain, Abdomen/GI: Negative for abdominal pain, nausea, vomiting, diarrhea, and constipation, Back: Negative for injury and pain, Skin: Negative for injury, rash, and discoloration, Neuro: Negative for headache, weakness, numbness, tingling, and seizure. 14:06 MS/extremity: Positive for pain, tenderness, warmth, Negative for injury or acute deformity, swelling. Exam: 14:06 Constitutional: This is a well developed, well nourished patient who is awake, alert, jr8 and in no acute distress. Head/Face: Normocephalic, atraumatic. Cardiovascular: Regular rate and rhythm with a normal S1 and S2. No gallops, murmurs, or rubs. Normal PMI, no JVD. No pulse deficits. Respiratory: Lungs have equal breath sounds bilaterally, clear to auscultation and percussion. No rales, rhonchi or wheezes noted. No increased work of breathing, no retractions or nasal flaring. Abdomen/GI: Soft, non-tender, with normal bowel sounds. No distension or tympany. No guarding or rebound. No evidence of tenderness throughout. Back: No spinal tenderness. No costovertebral tenderness. Full range of motion. Skin: Warm, dry with normal turgor. Normal color with no rashes, no lesions, and no evidence of cellulitis. Neuro: Awake and alert, GCS 15, oriented to person, place, time, and situation. Cranial nerves II-XII grossly intact. Motor strength 5/5 in all extremities. Sensory grossly intact. Cerebellar exam normal. Normal gait. 14:06 Musculoskeletal/extremity: Extremities: grossly normal except: noted in the right elbow: pain, tenderness, ROM: limited active range of motion due to pain, in the right elbow, pain with extension of right elbow, Circulation is intact in all extremities. Pulses: noted to be 2+ in the right radial artery and left radial artery, Sensation intact. Joints: All joints are normal except the right elbow displays painful range of motion, tenderness. 14:06 Special observations: complaints out of proportion to exam. Vital Signs: 13:07 BP 104 / 64; Pulse 92; Resp 18; Temp 98.1(TE); Pulse Ox 98% on R/A; Weight 85.73 kg; hj Height 5 ft. 7 in. (170.18 cm); Pain 10/10; 14:05 BP 125 / 69; Pulse 85; Resp 17 S; Temp 97.3(O); Pulse Ox 96% on R/A; ca1 15:40 BP 116 / 67; Pulse 91; Resp 17; Temp 97.5(O); Pulse Ox 97% on R/A; ca1 13:07 Body Mass Index 29.60 (85.73 kg, 170.18 cm) hj MDM: 13:38 Patient medically screened. jr8 15:28 Data reviewed: vital signs, nurses notes, lab test result(s). Data interpreted: Pulse jr8 oximetry: on room air is 96 %. Interpretation: normal. Counseling: I had a detailed discussion with the patient and/or guardian regarding: the historical points, exam findings, and any diagnostic results supporting the discharge/admit diagnosis, lab results, the need for outpatient follow up, a orthopedic surgeon, to return to the emergency department if symptoms worsen or persist or if there are any questions or concerns that arise at home. ED course: Discussed case with Dr. Chou. No indication of septic joint at this time. WBC normal. Only mild local swelling and warmth to olecranon bursa. Will having him fill his antibiotics and pain medication already prescribed and f/u with Dr. Chou which he agrees with at this time. Patient knows if he were to worsen to come back . 10/23 14:06 Order name: CBC with Diff; Complete Time: 15:07 la1 10/23 14:06 Order name: Basic Metabolic Panel; Complete Time: 15: la1 10/23 14:06 Order name: IV; Complete Time: 14:17 la1 Administered Medications: 14:46 Drug: TORadol - Ketorolac 15 mg Route: IVP; Site: left antecubital; hj 15:18 Follow up: Response: No adverse reaction hj 14:46 Drug: Demerol 25 mg Route: IVP; Site: left antecubital; hj 15:19 Follow up: Response: No adverse reaction; Pain is decreased hj 14:46 Drug: Zofran 4 mg Route: IVP; Site: left antecubital; 15:19 Follow up: Response: No adverse reaction Disposition: 10/24 05:49 Co-signature as Attending Physician, Gordon Mike MD I agree with the assessment and kvng plan of care. Disposition: 10/23/18 15:35 Discharged to Home. Impression: Septic Bursitis . - Condition is Stable. - Discharge Instructions: Elbow Bursitis. - Medication Reconciliation Form, Thank You Letter, Antibiotic Education, Prescription Opioid Use form. - Follow up: Marcio Chou MD; When: 2 - 3 days; Reason: Recheck today's complaints, Continuance of care, Re-evaluation by your physician. - Problem is new. - Symptoms have improved. Signatures: Dispatcher [employer] EDGordon Pierce MD MD cha Roszak, Josh, PA PA jr8 Ha Lopez RN RN la1 Caden St RN RN hj Danette Escalante RN RN ca1 Corrections: (The following items were deleted from the chart) 10/23 15:40 13:35 Immunization history: Adult Immunizations up to date, ca1 ca1 16:10 15:35 10/23/2018 15:35 Discharged to Home. Impression: Septic Bursitis . Condition is ca1 Stable. Forms are Medication Reconciliation Form, Thank You Letter, Antibiotic Education, Prescription Opioid Use. Follow up: Marcio Chou; When: 2 - 3 days; Reason: Recheck today's complaints, Continuance of care, Re-evaluation by your physician. Problem is new. Symptoms have improved. jr8
== END 2018-10-23 16:10 | disposition home or self-care (01) ==
LOC: ER 12:46
DX: M71.121 Other infective bursitis, right elbow (principal); F17.210 Nicotine dependence, cigarettes, uncomplicated
CPT/HCPCS: 36415; 80048; 85025; 96374; 96375; 99284; J2175; J2405

== ENCOUNTER 2019-10-31 23:51 | Emergency (ER) | payer SELFPAY ==
[2019-11-01] MEDS ORDERED: NA CHLORIDE 0.9% 1,000 ML ONE (00:44)
[2019-11-01] MEDS ORDERED: CLINDAMYCIN 900MG/D5W 900 MG/50 ML IVPB IV ONE (00:44)
[2019-11-01] MEDS ORDERED: FENTANYL CITR 100 MCG/2 ML ONE (01:11)
[2019-11-01 01:15] LABS: Absolute Lymphocytes (CBC) 2.2 K/uL (0.7-4.9); Basophils % 0.3 % (0-1.3); Lymphocytes % 18.8 % (15.3-44.8); MPV 9.5 fL (7.6-11.3); RBC Red Blood Cell Count 5.19 M/uL (4.33-5.43)
[2019-11-01 01:32] LABS: Potassium 3.9 mmol/L (3.5-5.1)
--- NOTE | 2019-11-01 02:53 | ER ---
Nurse's Notes [facility] Name: Akin Dash Age: 38 yrs Sex: Male : 1980 Arrival Date: 10/31/2019 Time: 23:52 Bed 19 Private MD: Diagnosis: Cellulitis and acute lymphangitis of face and neck Presentation: 10/31 00:04 Chief complaint: Patient states: "Last night I tried to pop a pimple on my chin, today vc it has spread and is swollen down my neck, I also have sores coming up on my arms, my neck is so swollen that its hard to breath, I kept ice and water on them last night because they were hot. I was diagnosed with Leukemia but I have not followed up yet." When asked how long ago he was diagnosed he stated 3 years ago. Coronavirus screen: Patient denies a cough. Patient denies shortness of breath or difficulty breathing. Patient denies measured and/or subjective temperature greater than 100.4F prior to today's visit. Patient denies travel on a cruise ship or to a country the [facility] currently lists as an affected area. Patient denies contact with known and/or suspected case of COVID-19. Proceed with normal triage. Ebola Screen: No symptoms or risks identified at this time. Risk Assessment: Do you want to hurt yourself or someone else?. Onset of symptoms was October 31, 2019. 00:04 Method Of Arrival: Ambulatory vc 00:04 Acuity: BÁRBARA 3 vc 00:15 Initial Sepsis Screen: Does the patient meet any 2 criteria? HR > 90 bpm. No. Patient's vc initial sepsis screen is negative. Does the patient have a suspected source of infection? Yes: Skin breakdown/wound Other: Leukemia. Triage Assessment: 00:18 General: Appears in no apparent distress. uncomfortable, Behavior is cooperative, vc anxious. Pain: Complains of pain in chin Pain radiates to neck Pain currently is 10 out of 10 on a pain scale. Quality of pain is described as burning, sharp, Pain began 1 day ago. Is continuous, Alleviated by cold application. Historical: - Allergies: 00:08 No Known Allergies; vc - Home Meds: 00:15 Adderall XR Oral once daily for Attention-Deficit Hyperactivity Disorder [Active]; vc phentermine oral oral once daily for Weight Loss Management for Overweight Patient with BMI 27 to 29 and Weight-Related Comorbidity [Active]; - PMHx: 00:08 Leukemia; vc 00:15 ADD/ADHD; vc - PSHx: 00:08 Appendectomy; Tonsillectomy; Knee surgery; vc - Immunization history:: Adult Immunizations up to date. - Social history:: Smoking status: Patient reports the use of cigarette tobacco products, 1-2 per day. Screenin:18 Abuse screen: Denies threats or abuse. Nutritional screening: No deficits noted. vc Tuberculosis screening: No symptoms or risk factors identified. Fall Risk None identified. Assessment: 00:15 General: Appears in no apparent distress. Behavior is calm, cooperative, appropriate wh for age. Pain: Complains of pain in neck and face and chin Pain does not radiate. Pain currently is 7 out of 10 on a pain scale. Quality of pain is described as burning, aching, Pain began 1 day ago. Neuro: Level of Consciousness is awake, alert, obeys commands, Oriented to person, place, time, situation, Appropriate for age. Cardiovascular: Heart tones S1 S2. Respiratory: Airway is patent Respiratory effort is even, unlabored, Respiratory pattern is regular, symmetrical, Breath sounds are clear bilaterally. GI: Abdomen is flat, non-distended. : No signs and/or symptoms were reported regarding the genitourinary system. EENT: Throat is pink. Derm: Skin is intact, is healthy with good turgor, Skin is pink, warm \\T\\ dry. normal. Musculoskeletal: Circulation, motion, and sensation intact. 01:05 Reassessment: Patient appears in no apparent distress at this time. pt requesting sg something topical to place on the area of his chin, pt informed to wait for the provider to reassess the area prior to placing topicals, potential for ID, pt stated understanding. 02:20 Reassessment: Patient appears in no apparent distress at this time. No changes from previously documented assessment. Patient and/or family updated on plan of care and expected duration. Pain level reassessed. Patient is alert, oriented x 3, equal unlabored respirations, skin warm/dry/pink. Vital Signs: 00:15 BP 108 / 85; Pulse 99; Resp 20; Temp 99.0(O); Pulse Ox 99% ; Weight 81.65 kg; Height 5 vc ft. 9 in. (175.26 cm); Pain 10/10; 01:15 BP 119 / 73; Pulse 90; Resp 18; Pulse Ox 100% on R/A; wh 02:25 BP 111 / 61; Pulse 86; Resp 18; Pulse Ox 100% on R/A; 00:15 Body Mass Index 26.58 (81.65 kg, 175.26 cm) vc ED Course: 10/30 23:52 Patient arrived in ED. cl3 23:59 Gordon Gonzáles PA is PHCP. cp 23:59 Stephen Valdovinos MD is Attending Physician. cp 10/31 00:01 Lonnie Winchester is Primary Nurse. 00:08 Triage completed. vc 00:20 Arm band placed on left wrist. vc 00:20 Patient has correct armband on for positive identification. Bed in low position. Call vc light in reach. Pulse ox on. NIBP on. 00:30 Inserted saline lock: 22 gauge in right antecubital area, using aseptic technique. wh Blood collected. 02:23 CT Soft Tissue Neck W/contr In Process Unspecified. EDMS 03:04 No provider procedures requiring assistance completed. IV discontinued, intact, wh bleeding controlled, No redness/swelling at site. Administered Medications: 00:56 Drug: NS 0.9% 1000 ml Route: IV; Rate: 1 bolus; Site: right antecubital; 02:26 Follow up: Response: No adverse reaction; IV Status: Completed infusion 00:56 Drug: Clindamycin 900 mg Route: IVPB; Infused Over: 30 mins; Site: right antecubital; 02:26 Follow up: Response: No adverse reaction; IV Status: Completed infusion 01:00 Drug: fentaNYL (PF) 25 mcg Route: IVP; Site: right antecubital; 02:26 Follow up: Response: No adverse reaction; Pain is decreased; RASS: Alert and Calm (0) 03:02 Drug: Bactrim (160 mg-800 mg (DS) 2 tabs Route: PO; 03:04 Follow up: Response: No adverse reaction Outcome: 02:52 Discharge ordered by . cp 03:04 Discharged to home ambulatory. 03:04 Condition: stable 03:04 Discharge instructions given to patient, Instructed on discharge instructions, follow up and referral plans. no drinking with medication, no driving heavy equipment, medication usage, POC Demonstrated understanding of instructions, follow-up care, medications, POC Prescriptions given X 3. 03:05 Patient left the ED. Signatures: Dispatcher [employer] EDMS Marcio Bravo RN RN Gordon Germain PA PA cp Habalo, Winsy Karan Griffin cl3 Mary Alicea RN RN vc Corrections: (The following items were deleted from the chart) 00:15 00:08 Home Meds: None; vc vc 00:17 00:04 Chief complaint: Patient states: "Last night I tried to pop a pimple on my chin, vc today it has spread and is swollen down my neck, I also have sores coming up on my arms, my neck is so swollen that its hard to breath, I kept ice and water on them last night because they were hot. I was recently diagnosed with Leukemia but I have not followed up yet." vc
--- NOTE | 2019-11-01 02:53 | EDPHYS ---
Physician Documentation [facility] Name: Akin Dash Age: 38 yrs Sex: Male : 1980 Arrival Date: 10/31/2019 Time: 23:52 Bed 19 Private MD: ED Physician Stephen Valdovinos HPI: 10/31 00:35 This 38 yrs old Male presents to ER via Ambulatory with complaints of Abscess cp - to chin. 00:35 The patient presents with cellulitis of the chin. Description: erythematous, swollen, cp tense. 00:35 Onset: The symptoms/episode began/occurred last night. cp 00:35 Associated signs and symptoms: Pertinent negatives: fever, dysphagia. cp 00:35 Severity of symptoms: in the emergency department the symptoms are unchanged, despite cp home interventions. Historical: - Allergies: 00:08 No Known Allergies; vc - Home Meds: 00:15 Adderall XR Oral once daily for Attention-Deficit Hyperactivity Disorder [Active]; vc phentermine oral oral once daily for Weight Loss Management for Overweight Patient with BMI 27 to 29 and Weight-Related Comorbidity [Active]; - PMHx: 00:08 Leukemia; vc 00:15 ADD/ADHD; vc - PSHx: 00:08 Appendectomy; Tonsillectomy; Knee surgery; vc - Immunization history:: Adult Immunizations up to date. - Social history:: Smoking status: Patient reports the use of cigarette tobacco products, 1-2 per day. ROS: 00:40 Constitutional: Negative for body aches, chills, fever, poor PO intake. cp 00:40 Eyes: Negative for injury, pain, redness, and discharge. cp 00:40 ENT: Negative for difficulty swallowing, difficulty handling secretions. 00:40 Cardiovascular: Negative for chest pain. 00:40 Respiratory: Negative for cough, shortness of breath, wheezing. 00:40 Skin: Positive for erythema, swelling, of the chin. 00:40 Neuro: Negative for altered mental status, headache. 00:40 All other systems are negative. Exam: 00:45 Constitutional: The patient appears in no acute distress, alert, awake, cp non-diaphoretic, non-toxic, well developed, well nourished. 00:45 Head/face: Noted is erythema, swelling, that is mild, of the chin, tenderness, that is cp moderate, of the chin. 00:45 Eyes: Periorbital structures: appear normal, Conjunctiva: normal, no exudate, no injection, Lids and lashes: appear normal, bilaterally. 00:45 ENT: External ear(s): are unremarkable, Nose: is normal, Mouth: Lips: moist, Oral mucosa: moist, Posterior pharynx: Airway: no evidence of obstruction, patent, swelling, is not appreciated. 00:45 Neck: External neck: tenderness, that is mild, of the submental area, ROM/movement: limited range of motion, is not appreciated, nuchal rigidity, is not appreciated. 00:45 Chest/axilla: Inspection: normal, Palpation: is normal, no crepitus, no tenderness. 00:45 Cardiovascular: Rate: normal, Rhythm: regular. 00:45 Respiratory: the patient does not display signs of respiratory distress, Respirations: normal, no use of accessory muscles, no retractions, labored breathing, is not present, Breath sounds: are clear throughout, no decreased breath sounds, no stridor, no wheezing. 00:45 Abdomen/GI: Exam negative for discomfort, distension, guarding, Inspection: abdomen cp appears normal. 00:45 Skin: cellulitis, that is moderate, on the chin. Vital Signs: 00:15 BP 108 / 85; Pulse 99; Resp 20; Temp 99.0(O); Pulse Ox 99% ; Weight 81.65 kg; Height 5 vc ft. 9 in. (175.26 cm); Pain 10/10; 01:15 BP 119 / 73; Pulse 90; Resp 18; Pulse Ox 100% on R/A; wh 02:25 BP 111 / 61; Pulse 86; Resp 18; Pulse Ox 100% on R/A; wh 00:15 Body Mass Index 26.58 (81.65 kg, 175.26 cm) vc MDM: 00:03 Patient medically screened. cp 01:00 Differential diagnosis: abscess, cellulitis. cp 02:50 Data reviewed: vital signs, nurses notes, lab test result(s), radiologic studies, CT cp scan. 02:50 Counseling: I had a detailed discussion with the patient and/or guardian regarding: the cp historical points, exam findings, and any diagnostic results supporting the discharge/admit diagnosis, lab results, radiology results, to return to the emergency department if symptoms worsen or persist or if there are any questions or concerns that arise at home. Response to treatment: the patient's symptoms have markedly improved after treatment, VSS. Pain improved, and as a result, I will discharge patient, administer antibiotics clindamycin and oral Bactrim. 10/31 00:29 Order name: CBC with Diff; Complete Time: 01:18 cp 10/31 01:18 Interpretation: Normal except: WBC 11.5; NEUT A 8.2. cp 10/31 00:29 Order name: BMP; Complete Time: 02:06 cp 10/31 02:07 Interpretation: Normal except: GLUC 114; CRE 1.43; GFR 55; CA 8.3. cp 10/31 00:29 Order name: CT Soft Tissue Neck W/contr cp 10/31 00:29 Order name: Blood Culture Adult (2) 10/31 00:29 Order name: Procalcitonin; Complete Time: 02:06 10/31 00:29 Order name: IV; Complete Time: 00:55 cp Administered Medications: 00:56 Drug: NS 0.9% 1000 ml Route: IV; Rate: 1 bolus; Site: right antecubital; 02:26 Follow up: Response: No adverse reaction; IV Status: Completed infusion 00:56 Drug: Clindamycin 900 mg Route: IVPB; Infused Over: 30 mins; Site: right antecubital; 02:26 Follow up: Response: No adverse reaction; IV Status: Completed infusion 01:00 Drug: fentaNYL (PF) 25 mcg Route: IVP; Site: right antecubital; 02:26 Follow up: Response: No adverse reaction; Pain is decreased; RASS: Alert and Calm (0) 03:02 Drug: Bactrim (160 mg-800 mg (DS) 2 tabs Route: PO; 03:04 Follow up: Response: No adverse reaction Disposition: 03:10 Chart complete. cp 04:39 Co-signature as Attending Physician, Stephen Valdovinos MD. [email or web address] Disposition: 11/01/19 02:52 Discharged to Home. Impression: Cellulitis and acute lymphangitis of face and neck. - Condition is Stable. - Discharge Instructions: Cellulitis, Adult. - Prescriptions for Clindamycin HCl 300 mg Oral Capsule - take 1 capsule by ORAL route every 6 hours for 10 days; 40 capsule. Bactrim DS 800- 160 mg Oral Tablet - take 1 tablet by ORAL route every 12 hours for 10 days; 20 tablet. Tramadol 50 mg Oral Tablet - take 1 tablet by ORAL route every 8 hours as needed; 12 tablet. - Medication Reconciliation Form, Thank You Letter, Antibiotic Education, Prescription Opioid Use form. - Follow up: Private Physician; When: 1 - 2 days; Reason: Worsening of condition. - Problem is new. - Symptoms have improved. Signatures: Dispatcher [employer] EDMS Marcio Bravo RN RN Gordon Germain PA PA cp Lonnie Winchester Mary Alicea RN RN Stephen Rao MD MD [email or web address] Corrections: (The following items were deleted from the chart) 00:15 00:08 Home Meds: None; vc vc 02:07 02:06 Normal except: GLUC 114; CRE 1.43; GFR 55. cp cp 03:05 02:52 11/01/2019 02:52 Discharged to Home. Impression: Cellulitis and acute wh lymphangitis of face and neck. Condition is Stable. Forms are Medication Reconciliation Form, Thank You Letter, Antibiotic Education, Prescription Opioid Use. Follow up: Private Physician; When: 1 - 2 days; Reason: Worsening of condition. Problem is new. Symptoms have improved. cp
[2019-11-01] MEDS ORDERED: SMZ./TMP. 800/160 MG TABLET ONE (03:07)
[2019-11-01 03:09] VITALS: TEMP 99
[2019-11-01 03:11] VITALS: O2SAT 100
[2019-11-01 03:12] VITALS: BP 111/61
--- NOTE | 2019-11-01 17:22 | RAD REPORT ---
EXAM DESCRIPTION: CT - Soft Tissue Neck W/Contr - 11/01/2019 7:04 am CLINICAL HISTORY: Pain and swelling. History of leukemia in 2017. Prior tonsillectomy. COMPARISON: None. TECHNIQUE: Axial 3.[address] imaging of the neck soft tissues performed. Reformatted coronal and sagit berry images obtained. Intravenous contrast utilized. Automated exposure control, adjustment of the mA and/or kV according to patient size, or use of itera tive reconstruction was performed. FINDINGS: Minimal enlargement of the lingual tonsils. The remaining parapharyngeal soft tissues and mucosal spaces appear normal. There is no mass or mucosal thickening. Normal epiglottis and larynx. N o prevertebral edema. The nasopharynx appears normal. Paranasal sinuses appear clear as visualized. Clear mastoid air cells . Skull base is intact. The parotid and submandibular glands appear normal. There are nonenlarged sca ttered neck lymph nodes. The carotid and jugular vessels are well-opacified. Vertebral arteries are well-opacified. Normal thy roid. Clear lung apices. There is mild lower cervical spondylosis, most notable at C5-6. There is fla ttening of the ventral spinal cord with AP canal stenosis at this level. IMPRESSION: 1. Mild lingual tonsillar enlargement. No parapharyngeal edema, mass, or adenopathy. 2. C5-6 spondylosis with spinal canal stenosis and flattening of the spinal cord at this level. Electronically signed by: Isabel Gill DO 11/01/2019 2:37 AM CDT Due to temporary technical issues with the PACS/Fluency reporting system, reports are being signed by the in house radiologist without review as a courtesy to ensure prompt reporting. The interpreting r adiologist is fully responsible for the content of the report.
== END 2019-11-01 03:05 | disposition home or self-care (01) ==
LOC: ER 23:51
DX: L03.221 Cellulitis of neck (principal); L03.212 Acute lymphangitis of face; L03.222 Acute lymphangitis of neck; F90.9 Attention-deficit hyperactivity disorder, unspecified type; Z85.6 Personal history of leukemia; Z72.0 Tobacco use
CPT/HCPCS: 36415; 70491; 80048; 84145; 85025; 87040; 96365; 96375; 99284; J3010; J7030; Q9967

== ENCOUNTER 2020-01-16 00:55 | Emergency (ER) | payer SELFPAY ==
--- NOTE | 2020-01-16 01:29 | EDPHYS ---
Physician Documentation [facility] Name: Akin Dash Age: 39 yrs Sex: Male : 1980 Arrival Date: 01/16/2020 Time: 00:57 Bed 20 Private MD: ED Physician Benny Flor HPI: 01/15 01:33 This 39 yrs old Male presents to ER via Ambulatory with complaints of Head tw4 lesions. 01:33 The patient's rash thought to be caused by Dermatitis. tw4 01:43 The rash is located on the scalp, left arm and neck. The rash can be described as tw4 papular, plaque-like. Onset: The symptoms/episode began/occurred 2 month(s) ago. Associated signs and symptoms: Pertinent negatives:. Severity of symptoms: At their worst the symptoms were moderate in the emergency department the symptoms are unchanged. The patient has not experienced similar symptoms in the past. Historical: - Home Meds: 01:14 Adderall XR Oral once daily for Attention-Deficit Hyperactivity Disorder [Active]; ea phentermine Oral once daily for Weight Loss Management for Overweight Patient with BMI 27 to 29 and Weight-Related Comorbidity [Active]; - PMHx: 01:14 ADD/ADHD; Leukemia; ea - PSHx: 01:14 Appendectomy; Tonsillectomy; Knee surgery; ea - Immunization history:: Adult Immunizations up to date. - Social history:: Smoking status: Patient reports the use of cigarette tobacco products, denies chronic smoking, but will smoke occasionally. ROS: 01:43 Constitutional: Negative for fever, chills, and weight loss, Eyes: Negative for injury, tw4 pain, redness, and discharge, Cardiovascular: Negative for chest pain, palpitations, and edema, Respiratory: Negative for shortness of breath, cough, wheezing, and pleuritic chest pain, Abdomen/GI: Negative for abdominal pain, nausea, vomiting, diarrhea, and constipation, Back: Negative for injury and pain, MS/Extremity: Negative for injury and deformity. 01:43 Skin: Positive for rash. Exam: 01:43 Constitutional: This is a well developed, well nourished patient who is awake, alert, tw4 and in no acute distress. Head/Face: Normocephalic, atraumatic. Chest/axilla: Normal chest wall appearance and motion. Nontender with no deformity. No lesions are appreciated. Cardiovascular: Regular rate and rhythm with a normal S1 and S2. No gallops, murmurs, or rubs. Normal PMI, no JVD. No pulse deficits. Respiratory: Lungs have equal breath sounds bilaterally, clear to auscultation and percussion. No rales, rhonchi or wheezes noted. No increased work of breathing, no retractions or nasal flaring. Abdomen/GI: Soft, non-tender, with normal bowel sounds. No distension or tympany. No guarding or rebound. No evidence of tenderness throughout. 01:43 Skin: scabies. Vital Signs: 01:11 BP 125 / 85; Pulse 98; Resp 19; Temp 97.7; Pulse Ox 100% on R/A; ea 01:17 BP 125 / 85; Pulse 98; Resp 19; Temp 97.7; Pulse Ox 100% on R/A; ea MDM: 00:59 Patient medically screened. tw 01:28 Data reviewed: vital signs, nurses notes. 01:29 Medical screen evaluation completed. [facility] emergency medical condition absent. tw4 01:43 Differential diagnosis: impetigo, varicella, allergic reaction. Data interpreted: Pulse tw4 oximetry: Interpretation: normal. Counseling: I had a detailed discussion with the patient and/or guardian regarding: the historical points, exam findings, and any diagnostic results supporting the discharge/admit diagnosis. Special discussion: I discussed with the patient/guardian in detail that at this point there is no indication for admission to the hospital. It is understood, however, that if the symptoms persist or worsen the patient needs to return immediately for re-evaluation. Administered Medications: No medications were administered Disposition: 01:29 [facility] Disposition: 01/16/20 01:28 Discharged to Home. Impression: Dermatitis, unspecified. - Condition is Stable. - Medication Reconciliation Form, Thank You Letter, Antibiotic Education, Prescription Opioid Use form. - Follow up: Private Physician; When: Upon discharge from the Emergency Department; Reason: Recheck today's complaints, Continuance of care, Re-evaluation by your physician. - Problem is new. - Symptoms have improved. Signatures: Marcio Bravo RN RN sg Antunez, Elena, RN RN ea Wadley, Terrence, MD MD 4 Corrections: (The following items were deleted from the chart) 01:29 01:28 01/16/2020 01:28 Discharged to Home. Impression: Dermatitis, unspecified. sg Condition is Stable. Forms are Medication Reconciliation Form, Thank You Letter, Antibiotic Education, Prescription Opioid Use. Follow up: Private Physician; When: Upon discharge from the Emergency Department; Reason: Recheck today's complaints, Continuance of care, Re-evaluation by your physician. Problem is new. Symptoms have improved. tw4
--- NOTE | 2020-01-16 01:29 | ER ---
Nurse's Notes [facility] Name: Akin Dash Age: 39 yrs Sex: Male : 1980 Arrival Date: 01/16/2020 Time: 00:57 Bed 20 Private MD: Diagnosis: Dermatitis, unspecified Presentation: 01/15 01:11 Chief complaint: Patient states: pt states he has a trail of lesions on his face, neck, ea back and head that burn and itch to the touch. says he got diagnosed with leukemia 3 years prior and never followed up with any dr about it. Coronavirus screen: Client denies travel out of the [place] in the last 14 days. At this time, the client does not indicate any symptoms associated with coronavirus-19. Ebola Screen: Patient negative for fever greater than or equal to 101.5 degrees Fahrenheit, and additional compatible Ebola Virus Disease symptoms. Initial Sepsis Screen: Does the patient meet any 2 criteria? No. Patient's initial sepsis screen is negative. Does the patient have a suspected source of infection? No. Patient's initial sepsis screen is negative. Risk Assessment: Do you want to hurt yourself or someone else? Patient reports no desire to harm self or others. Onset of symptoms is unknown. 01:11 Method Of Arrival: Ambulatory ea 01:11 Acuity: BÁRBARA 4 ea Triage Assessment: 01:14 General: Appears in no apparent distress. Behavior is calm, cooperative, appropriate ea for age, anxious. Pain: Complains of pain in posterior chest and back Pain currently is 9 out of 10 on a pain scale. EENT: No signs and/or symptoms were reported regarding the EENT system. Neuro: Level of Consciousness is awake, alert, obeys commands, Oriented to person, place, time, situation. Cardiovascular: Capillary refill < 3 seconds Patient's skin is warm and dry. Respiratory: Airway is patent Respiratory effort is even, unlabored, Respiratory pattern is regular, symmetrical. GI: No signs and/or symptoms were reported involving the gastrointestinal system. : No signs and/or symptoms were reported regarding the genitourinary system. Derm: Rash noted that is itchy, on back of neck, posterior chest and face. Musculoskeletal: Circulation, motion, and sensation intact. Range of motion: intact in all extremities. Historical: - Home Meds: 01:14 Adderall XR Oral once daily for Attention-Deficit Hyperactivity Disorder [Active]; ea phentermine Oral once daily for Weight Loss Management for Overweight Patient with BMI 27 to 29 and Weight-Related Comorbidity [Active]; - PMHx: 01:14 ADD/ADHD; Leukemia; ea - PSHx: 01:14 Appendectomy; Tonsillectomy; Knee surgery; ea - Immunization history:: Adult Immunizations up to date. - Social history:: Smoking status: Patient reports the use of cigarette tobacco products, denies chronic smoking, but will smoke occasionally. Screenin:18 Abuse screen: Denies threats or abuse. Nutritional screening: No deficits noted. ea Tuberculosis screening: No symptoms or risk factors identified. Fall Risk None identified. Assessment: :16 Reassessment: see triage assessment. ea Vital Signs: 01:11 BP 125 / 85; Pulse 98; Resp 19; Temp 97.7; Pulse Ox 100% on R/A; ea 01:17 BP 125 / 85; Pulse 98; Resp 19; Temp 97.7; Pulse Ox 100% on R/A; ea ED Course: 00:57 Patient arrived in ED. mr 00:59 Benny Flor MD is Attending Physician. tw 01: Vanessa Epps RN is Primary Nurse. ea 01:13 Triage completed. ea 01:16 Arm band placed on right wrist. Patient placed in a hallway bed. ea 01:18 Patient has correct armband on for positive identification. Bed in low position. Call ea light in reach. Side rails up X 1. Pulse ox on. NIBP on. :26 No provider procedures requiring assistance completed. ea 01:27 Patient did not have IV access during this emergency room visit. ea Administered Medications: No medications were administered Outcome: : Following a medical screening exam, the patient was provided information regarding ea alternative care sites and resources available per registration personnel. : Medical screen evaluation completed per provider. Patient declined treatment. ea : Condition: stable 01:28 Discharge ordered by . tw 01:29 Patient left the ED. sg Signatures: Marcio Bravo RN RN sg Delta Kimberly mr Vanessa Epps RN RN ea Wadley, Terrence, MD MD tw
[2020-01-16 02:53] VITALS: BP 125/85; TEMP 97.7; O2SAT 100
== END 2020-01-16 01:29 | disposition home or self-care (01) ==
LOC: ER 00:55
DX: L30.9 Dermatitis, unspecified (principal); F90.9 Attention-deficit hyperactivity disorder, unspecified type; F17.210 Nicotine dependence, cigarettes, uncomplicated; Z85.6 Personal history of leukemia
CPT/HCPCS: 99283

== ENCOUNTER 2020-07-17 17:20 | Emergency (ER) | payer SELFPAY ==
--- NOTE | 2020-07-17 19:02 | ER ---
Nurse's Notes [facility] Name: Akin Dash Age: 39 yrs Sex: Male : 1980 Arrival Date: 07/17/2020 Time: 17:27 Bed 24 Private MD: Diagnosis: Cutaneous abscess of left upper limb Presentation: 07/17 17:52 Chief complaint: Patient states: pain to L shoulder. Pt states, "[place] says I may have ss cellulitis. Pt reports pain began 3 days ago. Coronavirus screen: Client denies travel out of the [place] in the last 14 days. Ebola Screen: Patient denies exposure to infectious person. Patient denies travel to an Ebola-affected area in the 21 days before illness onset. Initial Sepsis Screen: Does the patient meet any 2 criteria? No. Patient's initial sepsis screen is negative. Does the patient have a suspected source of infection? No. Patient's initial sepsis screen is negative. Risk Assessment: Do you want to hurt yourself or someone else? Patient reports no desire to harm self or others. Onset of symptoms was July 14, 2020. 17:52 Method Of Arrival: Ambulatory ss 17:52 Acuity: BÁRBARA 4 ss Historical: - Allergies: 17:54 No Known Allergies; ss - Immunization history:: Adult Immunizations unknown. - Social history:: Smoking status: unknown. Screenin:34 Abuse screen: Denies threats or abuse. Nutritional screening: No deficits noted. bb Tuberculosis screening: No symptoms or risk factors identified. Fall Risk None identified. Assessment: 19:34 General: Appears uncomfortable, Behavior is calm, cooperative. Pain: Complains of pain bb in left arm Pain currently is 7 out of 10 on a pain scale. Neuro: Level of Consciousness is awake, alert, obeys commands, Oriented to person, place, time, situation. Cardiovascular: Rhythm is sinus tachycardia. Respiratory: Respiratory effort is even, unlabored, Respiratory pattern is regular. GI: No signs and/or symptoms were reported involving the gastrointestinal system. Derm: Abscess located on left arm. Musculoskeletal: Circulation, motion, and sensation intact. Vital Signs: 17:52 BP 112 / 82; Pulse 114; Resp 18; Temp 98.7(O); Pulse Ox 99% on R/A; Weight 81.65 kg; ss Height 5 ft. 8 in. (172.72 cm); Pain 10/10; 19:36 BP 112 / 75; Pulse 113; Resp 18 S; Temp 100(TE); Pulse Ox 99% on R/A; Pain 7/10; bb 17:52 Body Mass Index 27.37 (81.65 kg, 172.72 cm) ED Course: 17:27 Patient arrived in ED. mr 17:54 Triage completed. ss 17:54 Arm band placed on right wrist. ss 17:55 Stephanie [facility]C [facility]. kb 17:55 Gordon Mike MD is Attending Physician. kb 19:34 Patient has correct armband on for positive identification. bb 19:34 No provider procedures requiring assistance completed. Patient did not have IV access bb during this emergency room visit. Administered Medications: 19:27 Drug: Bactrim (160 mg-800 mg (DS) 1 tablet Route: PO; bb 19:37 Follow up: Response: No adverse reaction bb 19:27 Drug: KeFLEX (cephalexin) 500 mg Route: PO; bb 19:37 Follow up: Response: No adverse reaction bb 19:27 Drug: Ibuprofen 800 mg Route: PO; bb 19:37 Follow up: Response: No adverse reaction bb Outcome: 19:01 Discharge ordered by . kb 19:37 Patient left the ED. bb Signatures: Stephanie Romano FNP-C FNP-Ckb Delta Kimberly mr IglesiasJuanita, RN RN bb Lelo Camarillo RN RN Corrections: (The following items were deleted from the chart) 19:35 19:34 Reassessment: ivelisse oviedo
--- NOTE | 2020-07-17 19:02 | EDPHYS ---
Physician Documentation [facility] Name: Akin Dash Age: 39 yrs Sex: Male : 1980 Arrival Date: 07/17/2020 Time: 17:27 Bed 24 Private MD: ED Physician Gordon Mike HPI: 07/17 19:34 This 39 yrs old Male presents to ER via Ambulatory with complaints of Pain kb All Over. 19:34 The patient presents with an abscess of the left tricep. Description: draining, kb erythematous, swollen, warm. Onset: The symptoms/episode began/occurred 3 day(s) ago. Possible cause(s): unknown. Associated signs and symptoms: Pertinent positives: drainage, erythema, swelling, Pertinent negatives: fever. Modifying factors: the symptoms are alleviated by nothing, the symptoms are aggravated by pressure, touching. Severity of symptoms: At their worst the symptoms were moderate, in the emergency department the symptoms are unchanged. The patient has experienced similar episodes in the past, a few times. The patient has not recently seen a physician. Historical: - Allergies: 17:54 No Known Allergies; ss - Immunization history:: Adult Immunizations unknown. - Social history:: Smoking status: unknown. ROS: 19:31 MS/Extremity: Negative for injury and deformity, Neuro: Negative for headache, kb weakness, numbness, tingling, and seizure. 19:31 Skin: Positive for abscess, of the left tricep. 19:33 Constitutional: Positive for body aches, Negative for chills, fever. kb Exam: 19:33 Constitutional: This is a well developed, well nourished patient who is awake, alert, kb and in no acute distress. Head/Face: Normocephalic, atraumatic. Respiratory: Respirations even and unlabored. No increased work of breathing, no retractions or nasal flaring. MS/ Extremity: Pulses equal, no cyanosis. Neurovascular intact. Full, normal range of motion. Neuro: Awake and alert, GCS 15, oriented to person, place, time, and situation. Moves all extremities. Normal gait. 19:33 Skin: abscess, that is moderate sized, of the left tricep, with drainage, with induration, with surrounding cellulitis, that is very mild. Vital Signs: 17:52 BP 112 / 82; Pulse 114; Resp 18; Temp 98.7(O); Pulse Ox 99% on R/A; Weight 81.65 kg; ss Height 5 ft. 8 in. (172.72 cm); Pain 10/10; 19:36 BP 112 / 75; Pulse 113; Resp 18 S; Temp 100(TE); Pulse Ox 99% on R/A; Pain 7/10; bb 17:52 Body Mass Index 27.37 (81.65 kg, 172.72 cm) ss MDM: 17:55 Patient medically screened. kb 19:23 Data reviewed: vital signs, nurses notes. Data interpreted: Pulse oximetry: on room air kb is 99 %. Interpretation: normal. Counseling: I had a detailed discussion with the patient and/or guardian regarding: the historical points, exam findings, and any diagnostic results supporting the discharge/admit diagnosis, the need for outpatient follow up, a family practitioner, to return to the emergency department if symptoms worsen or persist or if there are any questions or concerns that arise at home. Administered Medications: 19:27 Drug: Bactrim (160 mg-800 mg (DS) 1 tablet Route: PO; bb 19:37 Follow up: Response: No adverse reaction bb 19:27 Drug: KeFLEX (cephalexin) 500 mg Route: PO; bb 19:37 Follow up: Response: No adverse reaction bb 19:27 Drug: Ibuprofen 800 mg Route: PO; bb 19:37 Follow up: Response: No adverse reaction bb Disposition: 07/18 07:32 Co-signature as Attending Physician, Gordon Mike MD I agree with the assessment and kvng plan of care. Disposition: 07/17/20 19:01 Discharged to Home. Impression: Cutaneous abscess of left upper limb. - Condition is Stable. - Discharge Instructions: Skin Abscess, [id number]. - Prescriptions for Keflex 500 mg Oral Capsule - take 1 capsule by ORAL route every 8 hours for 10 days; 30 capsule. Bactrim DS 800- 160 mg Oral Tablet - take 1 tablet by ORAL route every 12 hours for 10 days; 20 tablet. Tramadol 50 mg Oral Tablet - take 1 tablet by ORAL route every 8 hours as needed; 12 tablet. - Medication Reconciliation Form, Thank You Letter, Antibiotic Education, Prescription Opioid Use form. - Follow up: Emergency Department; When: As needed; Reason: Worsening of condition. Follow up: Private Physician; When: 2 - 3 days; Reason: Recheck today's complaints, Continuance of care, Re-evaluation by your physician. Signatures: Stephanie Romano, JOSE MEI-Gordon Han MD MD cha Ballard, Brenda, RN RN bb Lelo Camarillo RN RN ss Corrections: (The following items were deleted from the chart) 07/17 19:37 19:01 07/17/2020 19:01 Discharged to Home. Impression: Cutaneous abscess of left upper bb limb. Condition is Stable. Forms are Medication Reconciliation Form, Thank You Letter, Antibiotic Education, Prescription Opioid Use. Follow up: Emergency Department; When: As needed; Reason: Worsening of condition. Follow up: Private Physician; When: 2 - 3 days; Reason: Recheck today's complaints, Continuance of care, Re-evaluation by your physician. kb
[2020-07-17] MEDS ORDERED: CEPHALEXIN 250 MG CAP ONE (19:34)
[2020-07-17] MEDS ORDERED: SMZ./TMP. 800/160 MG TABLET ONE (19:35)
[2020-07-17] MEDS ORDERED: IBUPROFEN 400 MG TAB ONE (19:35)
[2020-07-17 20:13] VITALS: O2SAT 99
[2020-07-17 20:15] VITALS: BP 112/75; TEMP 100
== END 2020-07-17 19:37 | disposition home or self-care (01) ==
LOC: ER 17:20
DX: L02.414 Cutaneous abscess of left upper limb (principal)
CPT/HCPCS: 99284